=== PATIENT | female | born 2000 | race Caucasian/White ===

== ENCOUNTER 2022-03-29 16:03 | Emergency (ER) | payer OTHER, SELFPAY ==
--- NOTE | ~2022-03-29 | US_ITS ---
EXAMINATION: US renal BI DATE: 03/29/2022 17:43 INDICATION: Bilateral flank pain. Dysuria. TECHNIQUE: Multiple ultrasound grayscale images of the kidneys were obtained. COMPARISON: None. FINDINGS: The right kidney measures 9.0 x 5.8 x 4.1 cm. The left kidney measures 10.6 x 4.2 x 5.7 cm. The kidne ys demonstrate normal parenchymal echogenicity. There is no hydronephrosis. The bladder is not well d istended. IMPRESSION: 1. Normal kidneys. No hydronephrosis. Reviewed, dictated and finalized at location A. 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
[2022-03-29 16:17] VITALS: BP 117/68; PULSE 84; RESP 18; TEMP 36.9; O2SAT 100
[2022-03-29 16:29] LABS: Add Urine Microscopic? YES; Appearance Urine Slightly Cloudy (Clear); Bilirubin Urine Negative (Negative); Blood Urine Negative (Negative); Color Urine Yellow (Yellow); Glucose Urine UA Negative (Negative); Ketones Urine Negative (Negative); Leukocyte Esterase Ur Negative LEU/UL (Negative); Nitrate Urine Negative (Negative); Protein Urine Trace mg/dL (Negative); Urobilinogen Urine 0.2 mg/dL (<2.0)
[2022-03-29 16:43] LABS: Bacteria Urine Trace /hpf; Mucus Urine Heavy /lpf; Squamous Epithelial Cell Urine Few /hpf (Few)
--- NOTE | 2022-03-29 17:23 | ED.ABDPAIN ---
HPI - Abdominal Pain General Chief Complaint: Abdominal Pain Stated Complaint: bilateral flank pain- 18 weeks Time Seen by Provider: 03/29/22 17:05 History of Present Illness HPI narrative: 21-year-old female who is currently 18 weeks here for evaluation of back pain. Patient states the pain began last evening in her right lumbar paraspinal region, she took a Tylenol with improvement of her symptoms but states that she woke up today and her left lumbar paraspinal region was sore. She is concerned because she had an episode of dysuria 3 days ago; since resolved. Denies fevers, chills, nausea, vomiting, diarrhea, constipation, trauma tach, incontinence or retention of bowel or bladder, saddle anesthesia. She denies abdominal pain, decreased movements. No vaginal bleeding. She is a patient of Dr. Odonnell. Related Data Allergies Allergy/AdvReac Type Severity Reaction Status Date / Time latex Allergy Blister Verified 03/29/22 18:16 propranolol Allergy Unknown Verified 03/29/22 18:16 tramadol Allergy Seizure Verified 03/29/22 18:16 cephalexin [From Keflex] AdvReac Vomiting Verified 03/29/22 18:16 morphine AdvReac Vomiting Verified 03/29/22 18:16 Review of Systems Review of Systems: Gen: Denies fevers or chills Eyes: Denies eye pain or visual change ENT: Denies congestion Respiratory: Denies shortness of breath or cough CV: Denies chest pain or palpitations GI: Denies abdominal pain nausea, emesis or diarrhea denies burning, urgency, frequency or hematuria Musculoskeletal: Reports bilateral low back pain. Neuro: Denies numbness, tingling, weakness or focal weakness Skin: Denies rash Except as documented, all other systems reviewed and negative Exam Narrative: APPEARANCE: No acute distress, nontoxic, resting in bed EYES: EOMI HEENT: Normocephalic, atraumatic, OMM RESPIRATORY: No respiratory distress Clear to auscultation bilaterally with no rhonchi wheezing or rales. CARDIOVASCULAR: Regular rate and rhythm without murmurs rubs or gallops. ABDOMINAL: Gravid uterus. Soft, nontender, nondistended, no rebound or guarding MUSCULOSKELETAL: No CVA tenderness. No tenderness along the midline. Moves all extremities. No clubbing, cyanosis or edema. NEURO: Awake and alert. Following commands, speech normal, no focal deficits SKIN: Warm, dry. No rashes lesions or abrasions PSYCHIATRIC: Normal affect/mood Course Vital Signs Vital signs: Vital Signs Temperature 98.5 F 03/29/22 16:17 Pulse Rate 84 03/29/22 16:17 Respiratory Rate 18 03/29/22 16:17 Blood Pressure 117/68 03/29/22 16:17 Pulse Oximetry 100 03/29/22 16:17 Temperature 98.5 F 03/29/22 16:17 Pulse Rate 84 03/29/22 16:17 Respiratory Rate 18 03/29/22 16:17 Blood Pressure 117/68 03/29/22 16:17 Pulse Oximetry 100 03/29/22 16:17 MDM - Abdominal Pain MDM Narrative Medical decision making narrative: 21-year-old female here for evaluation of bilateral low back pain over the past several days, preceded by 1 day of dysuria that has resolved. She is nontoxic-appearing and has normal vital signs, no CVA tenderness. UA is without evidence of infection; evidence of mucus, only 4-6 WBC. Declines testing for STIs or STDs today. Renal ultrasound without hydronephrosis. no decreased motions, vaginal bleeding, abdominal pain or contractions. Lab Data 03/29/22 18:17 03/29/22 18:17 Labs: Lab Results 03/29/22 03/29/22 03/29/22 Range/Units 16:20 18:17 18:17 WBC 8.3 (4.5-10.0) K/mm3 RBC 4.58 (4.2-5.4) M/mm3 Hgb 12.9 (12.0-15.0) g/dL Hct 39.1 (37.0-47.0) % MCV 85.4 (80-100) fl MCH 28.2 (26-34) pg MCHC 33.0 (32-36) g/dl RDW 13.7 (11.5-14.5) % Plt Count 242 (150-375) k/mm3 MPV 10.5 H (7.4-10.4) fl Immature Gran % (Auto) 0.6 H (0-0.5) % Neut % (Auto) 72.3 (45.5-73.1) % Lymph % (Auto) 19.4 (18.3-44.2) % [place] % (Aut
[2022-03-29] MEDS: ACETAMINOPHEN 325 MG TABLET 650 MG PO (18:22)
[2022-03-29 18:26] LABS: Basophils Percent Auto 0.1 % (0.2-1.2); Eosinophils Percent Auto 0.4 % (0-4.4); Hematocrit 39.1 % (37.0-47.0); Hemoglobin 12.9 g/dL (12.0-15.0); Immature Granulocyte Absolute 0.05 K/mm3 (0.00-0.031); Immature Granulocyte Percent A 0.6 % (0-0.5); Lymphocytes Absolute Auto 1.61 K/mm3 (0.9-3.2); Lymphocytes Percent Auto 19.4 % (18.3-44.2); Mean Corpuscular Hemoglobin 28.2 pg (26-34); Mean Corpuscular Volume 85.4 fl (80-100); Mean Platelet Volume 10.5 fl (7.4-10.4); Monocytes Absolute Auto 0.6 K/mm3 (0.1-0.6); Monocytes Percent Auto 7.2 % (2.6-8.5); Neutrophils Percent Auto 72.3 % (45.5-73.1); Platelet Count Result 242 k/mm3 (150-375); Red Blood Count 4.58 M/mm3 (4.2-5.4); Red Cell Distribution Width 13.7 % (11.5-14.5); White Blood Count 8.3 K/mm3 (4.5-10.0)
[2022-03-29 18:36] LABS: Alanine Aminotransferase 33 U/L (6-35); Albumin Level 3.9 g/dL (3.5-5.1); Alkaline Phosphatase 106 U/L (38-126); Anion Gap 6 mmol/L (8-16); Aspartate Amino Transferase 25 U/L (14-36); Bilirubin,Total 0.6 mg/dL (0.2-1.3); Blood Urea Nitrogen 4 mg/dL (7-17); Calcium 8.7 mg/dL (8.4-10.2); Carbon Dioxide 23 mmol/L (22-30); Chloride 102 mmol/L (98-107); Estimated CRCL calculation 177 ml/min; Estimated Glomerular Filt Rate > 60; Glucose 81 mg/dL (65-110); Potassium 3.7 mmol/L (3.4-5.0); Sodium 131 mmol/L (137-145)
[2022-03-29 19:02] VITALS: BP 99/52; PULSE 88; RESP 16; O2SAT 99
== END 2022-03-29 19:04 | disposition home or self-care (01) ==
PROVIDERS: Emergency Medicine; Emergency Provider Physician Assistant; PCP Obstetrics & Gynecology
DX: O9A.212 Injury, poisoning and certain other consequences of external causes complicating pregnancy, second trimester (principal); S33.5XXA Sprain of ligaments of lumbar spine, initial encounter; X58.XXXA Exposure to other specified factors, initial encounter; Z3A.18 18 weeks gestation of pregnancy
CPT/HCPCS: 36415; 76775; 80053; 81001; 85025; 99284; A9270

== ENCOUNTER 2022-07-10 17:05 | Observation (INO) | payer BC, OTHER, SELFPAY ==
[2022-07-10] VITALS (19 sets, daily range): BP systolic 111–118; BP diastolic 62–69; PULSE 72–99; RESP 18; TEMP 36; O2SAT 97–100; BMI 37.6
[2022-07-10 18:26] LABS: Appearance Urine Turbid (Clear); Bacteria Urine 1+ /hpf; Bilirubin Urine Negative (Negative); Blood Urine Negative (Negative); Color Urine Yellow (Yellow); Glucose Urine UA Negative (Negative); Ketones Urine Negative (Negative); Leukocyte Esterase Ur Trace LEU/UL (Negative); Nitrate Urine Negative (Negative); Non Pathogenic Casts 0-2; Protein Urine Negative (Negative); RBC Urine 0-2 /hpf (0-2); Specific Grav Ur 1.018 (1.001-1.035); Squamous Epithelial Cell Urine Occasional /hpf (Few); Urobilinogen Urine 0.2 mg/dL (<2.0); WBC Urine 0-5 /hpf
[2022-07-10 18:35] LABS: Add Urine Microscopic? YES
--- NOTE | 2022-07-12 09:17 | P.PNOB_ITS ---
OB - Triage/Final Diagnosis Visit Information Reason for evaluation: threatened labor Comments/Additional reasons for admission: I have assessed the risk for this patient, Kylie Lino, and determined that she would benefit from observation care. Evaluation Laboratory results: Laboratory Tests 07/10/22 18:14 Urine Color Yellow Urine Appearance Turbid H Urine pH 7.0 Ur Specific [place] 1.018 Urine Protein Negative Urine Glucose (UA) Negative Urine Ketones Negative Ur Blood (Man) Negative Urine Nitrate Negative Urine Bilirubin Negative Urine Urobilinogen 0.2 Leukocyte Esterase Rfl Trace H Urine RBC 0-2 Urine WBC 0-5 Ur Squamous Epith Cells Occasional Urine Bacteria 1+ H Urine Casts 0-2
== END 2022-07-10 18:35 | disposition other institution (70) ==
PROVIDERS: Admitting Provider Obstetrics & Gynecology; Visit Provider Obstetrics & Gynecology
DX: O47.03 False labor before 37 completed weeks of gestation, third trimester (principal); Z3A.33 33 weeks gestation of pregnancy
CPT/HCPCS: 81001; G0378; G0379

== ENCOUNTER 2022-08-12 14:58 | Observation (INO) | payer BC, OTHER, SELFPAY ==
--- NOTE | 2022-08-12 15:50 | PC.NURSE ---
This patient, Kylie Lino, admitted to the OB room Labor/Delivery/Recovery 108 for observation. Patient/family oriented to hospital policies and general routines including ID bracelet, bed and alarms, visiting hours, pain management, procedures, bathroom and other care routines, personal items, smoking policy, room service/diet, and visiting hours. Patient/Family are encouraged to report perceived risks to care and to ask questions if they do not understand what they are told or what they should do.
--- NOTE | 2022-08-12 17:07 | PC.NURSE ---
Orders on this pt placed per Alessandro Reese RN.
--- NOTE | 2022-08-17 08:59 | PM.OBTRLD ---
OB - Triage/Final Diagnosis Visit Information Comments/Additional reasons for admission: I have assessed the risk for this patient, Kylie Lino, and determined that she would benefit from observation care. Final Diagnosis (1) False labor: Code(s): O47.9 - False labor, unspecified Status: Acute
== END 2022-08-12 17:25 | disposition home or self-care (01) ==
PROVIDERS: Admitting Provider Obstetrics & Gynecology; Visit Provider Obstetrics & Gynecology
DX: O47.1 False labor at or after 37 completed weeks of gestation (principal); Z3A.37 37 weeks gestation of pregnancy
CPT/HCPCS: G0378; G0379

== ENCOUNTER 2022-08-21 16:47 | Inpatient (IN) | payer OTHER, SELFPAY ==
[2022-08-21] VITALS (11 sets, daily range): BP systolic 96–125; BP diastolic 57–72; PULSE 81–95; TEMP 36.6–36.8; O2SAT 97–100; BMI 37.6
--- NOTE | 2022-08-21 17:46 | P.PNAN_ITS ---
Anes - Initial Pre Proc Eval Procedure: Labor epidural Date/Time: 08/21/22 17:46 Surgeon: Tom Odonnell MD Pre Op Diagnosis: Abdominal pain with contractions Pre Op Diagnosis: IOL Patient Data Age: 21 Gender: F Height: Weight: Allergies Allergy/AdvReac Type Severity Reaction Status Date / Time latex Allergy Blister Verified 03/29/22 18:16 propranolol Allergy Unknown Verified 07/10/22 18:04 tramadol Allergy Seizure Verified 03/29/22 18:16 cephalexin [From Keflex] AdvReac Vomiting Verified 03/29/22 18:16 morphine AdvReac Vomiting Verified 03/29/22 18:16 Home Medications Medication Instructions Recorded Confirmed Type albuterol sulfate 90 mcg/actuation 2 puff inhalation Q4H PRN 07/10/22 08/21/22 History aerosol inhaler Shortness Of Breath fluoxetine 10 mg capsule 10 mg PO HS 07/10/22 08/21/22 History metoprolol succinate 50 mg 50 mg PO DAILY 07/10/22 08/21/22 History tablet,extended release 24 hr vit no.95-ferrous 1 tablet PO HS 07/10/22 08/21/22 History fumarate 28 mg-folic acid 800 mcg tablet () : gestational age HCG: positive Patient hx anesthesia problems: none Family hx anesthesia problems: none Results Review: All pre-operative results and documents have been reviewed as part of the pre- operative evaluation. PMFSH Past Medical History Medical History Anemia Anxiety and depression H/O supraventricular tachycardia Migraines and not yet delivered PTSD (post-traumatic stress disorder) Scoliosis Family History Family History Grandparent Diabetes mellitus Cancer A-fib Mother High cholesterol Social History Social History Substance use: never Spiritual care concerns: No Anes - Eval Final PreProcedure Day of Procedure 08/21/22 17:46 Patient weight: overweight Airway: Mallampati scale class II ASA classification: III Anesthetic plan: proceed Anesthesia type and monitoring: standard monitoring Results Review: All pre-operative results and documents have been reviewed as part of the pre- operative evaluation. Informed Consent: The patient's anesthetic plan and its attendant risks and benefits were discussed with the patient/family/POA. Questions were solicited and answers provided to the satisfaction of the patient/family/POA.
--- NOTE | 2022-08-21 17:48 | LDADM ---
This patient, Kylie Lino, was admitted to Labor/Delivery/Recovery 107 on 08/21/22 at 16:47. Plans for labor, pain management and were discussed with patient. Patient/family oriented to hospital policies and general routines including ID bracelet, bed and alarms, visiting hours, pain management, procedures, bathroom and other care routines, personal items, smoking policy, room service/diet and guest tray routines, infant security routines, and visiting hours. Patient/Family are encouraged to report perceived risks to care and to ask questions if they do not understand what they are told or what they should do. See OBIX for further documentation.
[2022-08-21] MEDS: DINOPROSTONE 10 MG VAG INSERT VAGINAL (18:17)
[2022-08-21 18:19] LABS: Basophils Percent Auto 0.1 % (0.2-1.2); Eosinophils Percent Auto 0.4 % (0-4.4); Hematocrit 36.1 % (37.0-47.0); Hemoglobin 11.8 g/dL (12.0-15.0); Immature Granulocyte Absolute 0.08 K/mm3 (0.00-0.031); Immature Granulocyte Percent A 0.8 % (0-0.5); Lymphocytes Absolute Auto 1.59 K/mm3 (0.9-3.2); Lymphocytes Percent Auto 16.5 % (18.3-44.2); Mean Corpuscular HGB Conc 32.7 g/dl (32-36); Mean Corpuscular Hemoglobin 27.6 pg (26-34); Mean Corpuscular Volume 84.5 fl (80-100); Mean Platelet Volume 10.5 fl (7.4-10.4); Monocytes Absolute Auto 0.9 K/mm3 (0.1-0.6); Monocytes Percent Auto 9.4 % (2.6-8.5); Neutrophils Percent Auto 72.8 % (45.5-73.1); Platelet Count Result 241 k/mm3 (150-375); Red Blood Count 4.27 M/mm3 (4.2-5.4); Red Cell Distribution Width 14.6 % (11.5-14.5); White Blood Count 9.6 K/mm3 (4.5-10.0)
[2022-08-21 19:08] LABS: HIV 1/2 Ab P24 Ag Result Negative (Negative)
[2022-08-21] MEDS: fentaNYL CITRATE INJ (*CRX) 100 MCG/2 ML VIAL 50 MCG IV PUSH (22:02)
[2022-08-21] MEDS: LACTATED RINGERS 1,000 ML 125 ML IV CONT (22:25)
[2022-08-21] MEDS: fentaNYL CITRATE INJ (*CRX) 100 MCG/2 ML VIAL IV PUSH (23:27)
[2022-08-22] VITALS (151 sets, daily range): BP systolic 64–150; BP diastolic 29–121; PULSE 47–271; RESP 14–16; TEMP 36.7–37.1; O2SAT 82–100
[2022-08-22] MEDS: LACTATED RINGERS 1,000 ML 125 ML IV CONT ×2 (01:26→07:07)
[2022-08-22] MEDS: FLUoxetine HCL 10 MG CAPSULE PO ×2 (01:28→23:39)
[2022-08-22] MEDS: ONDANSETRON INJ 4 MG/2 ML VIAL IV PUSH (06:11)
--- NOTE | 2022-08-22 06:36 | PM.OBPNLAB ---
Pain Control Date/time seen: 08/22/22 06:36 Pain control: tolerating well and epidural Pelvic Exam Dilation (cm): 8 Effacement (%): 100 station: -1 Amniotic membrane status: Leaking Comments: iupc placed. amnioinfusion
[2022-08-22] MEDS: CALCIUM CARBONATE (TUMS) 500 MG (200 MG ELEMENTAL) PO (06:42)
[2022-08-22] MEDS: SODIUM CHLORIDE 0.9% IV 300 ML 600 ML I-UTERINE (06:42)
--- NOTE | 2022-08-22 07:17 | PC.NURSE ---
Third bag of LR started at 0400
[2022-08-22] MEDS: OXYTOCIN 30 UNITS/NS 500 ML 30 UNITS/500 ML BAG 999 UNITS IV CONT (07:54)
--- NOTE | 2022-08-22 08:20 | WPDOBADMIT ---
Obstetrics - Admit Note Admission Note: record reviewed. Additions to the history and/or subsequent changes in the physical findings follow. 21 y/o G1 at 39 1/7 weeks here for induction of labor. Cervidil overnight, has been withdrawn. Comfortable with epidural. GBS neg. AVSS NST reactive; now with variable decelerations. TOCO: contractions every 2-3 min ABD soft, nontender, gravid, vertex EXT nontender Cervix C/+2 at time of my arrival. A; IUP at term, desiring induction of labor. P: Pushing. Anticipate .
--- NOTE | 2022-08-22 08:22 | PM.OBPRVD ---
OB - Delivery Note Procedure Delivery date: 08/22/22 Procedure: Induction of labor with Induction method: Per Cervidil Protocol Delivery augmentation: Rupture of Membranes Delivery monitor: External FHT, External Uterine and Internal Uterine Route of delivery: Laceration Description: Perineal - 2nd Degree Delivery repair: vicryl (3-0) Specimen: Yes (Cord blood) Quantitative Blood Loss (ml): 160 Anesthesia type: Epidural Disposition: PACU Complications: None Narrative: 21 y/o G1 at 39 1/7 weeks gestation who presented to the hospital for induction of labor. Cervidil placed. She developed contractions and received an epidural. Cervidil withdrawn and cervix was found to be 8 cm dilated. AROM with clear fluid. IUPC placed and an amnioinfusion begun for variable FHR decelerations. Labor progressed rapidly without further stimulation, and her cervix dilated completely. She pushed with good effort and delivered the infant's head to the perineum, followed by the body. The nose and mouth were bulb suctioned. After a delay, the cord was clamped and cut. The was handed off the field. Cord blood was collected. The placenta delivered spontaneously and was grossly normal in appearance. The usual 3 vessel cord was noted. A second degree midline perineal laceration was sustained. This was reapproximated using 3 0 Vicryl in the usual layered fashion. Excellent hemostasis resulted as did excellent reapproximation of the normal anatomy. Needle and instrument counts were correct. The patient was taken to recovery room in stable condition. The infant went to the nursery in stable condition. I was present and scrubbed for the entire delivery. Baby Date of : 08/22/22 Time of : 07:50 Weeks of gestation at delivery: 39 Infant gender: Male Weight (pounds): 7 Weight (ounces): 10 presentation: vertex position: Right Occiput Anterior Placenta delivery description: Spontaneous and Normal Configuration Cord Vessel Description: 3 Vessels and Delayed Cord Clamping score one minute: 9 score five minutes: 9
[2022-08-22] MEDS: OXYTOCIN 30 UNITS/NS 500 ML 30 UNITS/500 ML BAG 125 UNITS IV CONT (08:26)
--- NOTE | 2022-08-22 08:26 | PM.OBDSVD ---
DS: Admitting Diagnosis Discharge Date 08/23/22 Admitting Diagnosis IUP at 39 1/7 weeks DS: Discharge Diagnosis Discharge Diagnosis (1) (normal spontaneous vaginal delivery): Code(s): O80 - Encounter for full-term uncomplicated delivery Status: Acute OB - DS: Summary OB Procedures : None OB Procedures Intrapartum: Spontaneous Vag Delivery OB Procedures: : None Time Spent with Patient Time attestation: Total time spent providing and/or coordinating discharge services: DS: Data Data Completed and Pending Labs on day of discharge: Labs from last 24 hours 08/21/22 18:10 WBC 9.6 RBC 4.27 Hgb 11.8 L Hct 36.1 L MCV 84.5 MCH 27.6 MCHC 32.7 RDW 14.6 H Plt Count 241 MPV 10.5 H Immature Gran % (Auto) 0.8 H Neut % (Auto) 72.8 Lymph % (Auto) 16.5 L [place] % (Auto) 9.4 H Eos % (Auto) 0.4 Baso % (Auto) 0.1 L Lymph # (Auto) 1.59 [place] # (Auto) 0.9 H Eos # (Auto) 0.0 Baso # (Auto) 0.0 Abs Immat Gran (auto) 0.08 H Absolute Neuts (auto) 7.0 H Absolute Nucleated RBC 0.0 Nucleated RBC % 0.0 RPR Pending HIV 1&2 Ab/P24 Ag 4thGn Negative Blood Type O Positive Antibody Screen Negative Discharge Plan Discharge Attending physician on discharge: Tom Odonnell Discharging Clinician: Tom Odonnell Patient Disposition: Home, Self-Care Activity: pelvic rest Diet: regular Discharge Instructions: Call or return if temperature above 100.4? F, increased abdominal pain, increased vaginal bleeding or any new problems. Education: Mom and Baby Guide Given to: Mother Follow-Up: Call your delivering provider's office for an appointment to be seen in: 6 Weeks Mom and baby should come to the [facility] for the follow-up appointment. Appointment Date/Time: August 26, 2022 at 11:00 am What to expect at your follow-up visit: Physical Assessment Call [phone] if you are unable to keep your appointment time. BREAST CARE: * Wear a snug supportive bra. * For engorgement discomfort: Breast Feeding: * Apply warm moist washcloths * Express milk as needed to relieve engorgement * Wear loose clothing * For sore nipples: * Identify correct latch-on * Apply warm moist washcloths before and after nursing * Air dry nipples after nursing * May apply Lansinoh cream to nipples EPISIOTOMY/PERINEAL CARE: * Until bleeding stops, use your daniele bottle after urinating * Change your pad frequently throughout the day * You may take sitz baths several times a day (fill your bathtub with warm water and soak for 20 minutes.) Do NOT bathe in the water * No tub baths until seen by your physician - You may shower ACTIVITY: * Rest as much as possible. * Do not exercise or lift anything heavier than your baby (such as laundry or other children.) * Avoid stairs or driving as much as possible. * Do not put anything into the vagina. No douching, tampons, or sexual activity until seen by physician. NOTIFY PHYSICIAN IF YOU HAVE ANY QUESTIONS OR IF ANY OF THE FOLLOWING SYMPTOMS OCCUR: * If your episiotomy or incision becomes red, swollen, or more painful than what you have experienced in the hospital. * If your vaginal bleeding becomes foul smelling. * If your vaginal bleeding becomes more heavy than a period or if your bleeding changes from pink to bright red. However, you may pass an occasional walnut-sized clot once or twice for the first week . * If you experience a sharp, shooting pain in you calves. * If you discover a hard, reddened area on your breast or if you experience flu-like symptoms. DIET: * Eat regular, well-balanced meals. * Drink plenty of fluids daily. If , drink to thirst. Stand Alone Forms: General Discharge Information Follow-up/Referrals: Tom Odonnell MD [Physician] - 6 Weeks Discharge Medications: New i
[2022-08-22 08:52] LABS: Rapid Plasma Reagin Non-Reactive (NonReactive)
[2022-08-22] MEDS: METOPROLOL SUCCINATE EXT REL 50 MG TABCR PO (10:40)
--- NOTE | 2022-08-22 11:13 | PC.NURSE ---
Patient transferred to post room #282 via wheelchair. Support person present. Oriented to unit, room, information board, rooming in, admission packet and security measures. Patient verbalizes understanding.
[2022-08-22] MEDS: IBUPROFEN 600 MG TABLET PO ×3 (11:55→23:39)
[2022-08-22] MEDS: MULTIVIT/MIN/PREN/FOL AC/IRON TABLET 1 TAB PO (11:55)
[2022-08-23 05:31] LABS: Hematocrit 33.4 % (37.0-47.0); Hemoglobin 10.6 g/dL (12.0-15.0)
[2022-08-23] MEDS: MULTIVIT/MIN/PREN/FOL AC/IRON TABLET 1 TAB PO (06:47)
[2022-08-23] MEDS: IBUPROFEN 600 MG TABLET PO ×2 (06:47→13:47)
[2022-08-23] MEDS: LANOLIN (LANSINOH) 7.5 GM CREAM 1 APPLIC TOPICAL (06:48)
[2022-08-23] MEDS: ACETAMINOPHEN 325 MG TABLET 650 MG PO (08:03)
[2022-08-23 08:04] VITALS: PULSE 72
[2022-08-23] MEDS: METOPROLOL SUCCINATE EXT REL 50 MG TABCR PO (08:04)
[2022-08-23 08:30] VITALS: BP 104/61; PULSE 87; RESP 16; TEMP 36.8; O2SAT 100
--- NOTE | 2022-08-23 09:01 | PM.OBPNVD ---
OB - PN: Subj Subjective Date/time seen: 08/23/22 09:01 Patient comments: no complaints and pain well controlled baby status: doing well and nursing well OB - PN: Obj Data Labs 08/23/22 04:41 Labs: Laboratory Results - last 24 hr 08/23/22 04:41 Hgb 10.6 L Hct 33.4 L OB - PN A/P Plan day: 1 Plan: routine care, discharge home and follow up 6 weeks Time Spent With Patient Time: Total time spent is greater than 50% in coordination of care (as documented) at patient's floor/unit and/or counseling patient: Time with patient: less than 15 minutes Exam Const: General: cooperative, healthy appearing and comfortable Nutritional Appearance: average body habitus Orientation/consciousness: oriented to person, oriented to place and oriented to time GI: Inspection: normal to inspection
--- NOTE | 2022-08-23 14:19 | PC.NURSE ---
Patient viewed the discharge video Mother & Baby Care, The First Two Weeks . Patient was given the opportunity and encouraged to ask questions. Patient verbalized understanding of information shared and has been given the mother/baby guide for home reference.
--- NOTE | 2022-08-23 14:56 | WPDANLDPN2 ---
Anes-Prog Note L&D Date/Time: 08/23/22 14:56 Neuro status: Neuro function grossly intact. Vital Signs: Last Vital Signs Temp 36.8 C 08/23/22 08:30 Pulse 87 08/23/22 08:30 Resp 16 08/23/22 08:30 BP 104/61 08/23/22 08:30 Pulse Ox 100 08/23/22 08:30 O2 Del Method Room Air 08/21/22 17:45 Pain score (VAS): 0 I/O: Intake & Output 08/22/22 08/23/22 08/23/22 23:59 07:59 15:59 Intake Total 0 480 Balance 0 480 Patient feedback: Patient satisfied with anesthetic care.
[2022-08-26 11:10] VITALS: BP 119/62; PULSE 88; RESP 18; TEMP 37.3; O2SAT 100
== END 2022-08-23 15:20 | disposition home or self-care (01) | DRG 560 ==
LOC: ANHLDR 08-22 08:35 → ANHOB2 08-22 14:17 → ANHLDR 08-27 09:55 → ANHOB2 08-27 09:55
PROVIDERS: Admitting Provider Obstetrics & Gynecology; Visit Provider Obstetrics & Gynecology
DX: O99.02 Anemia complicating childbirth (principal); D64.9 Anemia, unspecified; Z37.0 Single live birth; Z3A.39 39 weeks gestation of pregnancy; O70.1 Second degree perineal laceration during delivery; O36.8330 Maternal care for abnormalities of the fetal heart rate or rhythm, third trimester, not applicable or unspecified
CPT/HCPCS: 36415; 85014; 85018; 85025; 86592; 86703; 86850; 86900; 86901; A9270; G0432; J2405; J2590; J2795; J3010; J7030; J7120

== ENCOUNTER 2023-06-30 11:14 | Emergency (ER) | payer OTHER, SELFPAY ==
[2023-06-30] VITALS (13 sets, daily range): BP systolic 91–111; BP diastolic 45–82; PULSE 74–146; RESP 15–18; TEMP 36.6; O2SAT 98–100
[2023-06-30 11:50] LABS: Basophils Percent Auto 0.2 % (0.2-1.2); Eosinophils Percent Auto 0.2 % (0-4.4); Hematocrit 40.8 % (37.0-47.0); Hemoglobin 13.3 g/dL (12.0-15.0); Immature Granulocyte Absolute 0.01 K/mm3 (0.00-0.031); Immature Granulocyte Percent A 0.2 % (0-0.5); Lymphocytes Absolute Auto 0.59 K/mm3 (0.9-3.2); Lymphocytes Percent Auto 13.2 % (18.3-44.2); Mean Corpuscular HGB Conc 32.6 g/dl (32-36); Mean Corpuscular Hemoglobin 27.4 pg (26-34); Mean Platelet Volume 10.5 fl (7.4-10.4); Monocytes Absolute Auto 0.4 K/mm3 (0.1-0.6); Monocytes Percent Auto 9.8 % (2.6-8.5); Neutrophils Absolute Auto 3.4 K/mm3 (1.3-6.7); Neutrophils Percent Auto 76.4 % (45.5-73.1); Platelet Count Result 193 k/mm3 (150-375); Red Blood Count 4.86 M/mm3 (4.2-5.4); Red Cell Distribution Width 14.1 % (11.5-14.5); White Blood Count 4.5 K/mm3 (4.5-10.0)
[2023-06-30 12:11] LABS: Appearance Urine Cloudy (Clear); Bacteria Urine 4+ /hpf; Bilirubin Urine Negative (Negative); Blood Urine Negative (Negative); Color Urine Dark Yellow (Yellow); Glucose Urine UA Negative (Negative); Ketones Urine 3+ mg/dL (Negative); Leukocyte Esterase Ur Negative LEU/UL (Negative); Need Manual Microscopic Reviewed; Nitrate Urine Negative (Negative); Protein Urine Trace mg/dL (Negative); Specific Grav Ur 1.024 (1.001-1.035); Squamous Epithelial Cell Urine Few /hpf (Few)
[2023-06-30 12:14] LABS: Add Urine Microscopic? YES
[2023-06-30 13:46] LABS: Alanine Aminotransferase 26 U/L (6-35); Albumin Level 3.5 g/dL (3.5-5.1); Alkaline Phosphatase 110 U/L (38-126); Anion Gap 5 mmol/L (4-12); Aspartate Amino Transferase 33 U/L (14-36); Bilirubin,Total 0.5 mg/dL (0.2-1.3); Blood Urea Nitrogen 5 mg/dL (7-17); Calcium 8.5 mg/dL (8.4-10.2); Carbon Dioxide 22 mmol/L (22-30); Chloride 104 mmol/L (98-107); Estimated CRCL calculation 211 ml/min; Estimated Glomerular Filt Rate > 60; Glucose 81 mg/dL (65-110); Potassium 3.2 mmol/L (3.4-5.0); Sodium 131 mmol/L (137-145)
[2023-06-30] MEDS: ONDANSETRON INJ 4 MG/2 ML VIAL IV PUSH (13:49)
[2023-06-30] MEDS: DEXTROSE 5%/LACTATED RINGERS 1,000 ML 999 ML IV CONT (13:49)
[2023-06-30 14:44] LABS: Lipase 53 U/L (23-300)
[2023-06-30] MEDS: SODIUM CHLORIDE 0.9% IV 1,000 ML 999 ML IV CONT (15:18)
--- NOTE | 2023-06-30 16:24 | ED.GENADULT ---
HPI - General Adult General Chief complaint: Nausea/Vomiting/Diarrhea Stated complaint: dehydration Time Seen by Provider: 06/30/23 13:22 Source: patient Mode of arrival: ambulatory Limitations: no limitations History of Present Illness HPI narrative: 22-year-old 2 para 1 about 15 weeks of gestation here with complaints of nausea, vomiting, lightheadedness for past few days. Patient states that she is unable to keep anything down. Patient was at the primary doctor's office was found to have high heart rate was referred to the ER for workup and hydration. She presently denies having any chest pain or shortness of breath. Complains of occasional abdominal cramping whenever she dry heaves. Had some diarrhea yesterday none today. Denies any vaginal bleeding or discharge. Related Data Home Medications Medication Instructions Recorded Confirmed albuterol sulfate 90 mcg/actuation 2 puff inhalation Q4H PRN 07/10/22 08/21/22 aerosol inhaler Shortness Of Breath fluoxetine 10 mg capsule 10 mg PO HS 07/10/22 08/21/22 metoprolol succinate 50 mg 50 mg PO DAILY 07/10/22 08/21/22 tablet,extended release 24 hr vit no.95-ferrous 1 tablet PO HS 07/10/22 08/21/22 fumarate 28 mg-folic acid 800 mcg tablet () Allergies Allergy/AdvReac Type Severity Reaction Status Date / Time latex Allergy Blister Verified 06/30/23 11:32 propranolol Allergy Unknown Verified 06/30/23 11:32 tramadol Allergy Seizure Verified 06/30/23 11:32 cephalexin [From Keflex] AdvReac Vomiting Verified 06/30/23 11:32 morphine AdvReac Vomiting Verified 06/30/23 11:32 Review of Systems Review of Systems: All systems reviewed & are unremarkable except as noted in HPI and below Constitutional: Constitutional: Reports no additional constitutional complaints Eyes: Eyes: Reports no additional eye complaints ENT: Reports system reviewed and no additional complaints, except as documented Cardiovascular: Cardiovascular: Reports no additional cardiovascular complaints Respiratory: Respiratory: Reports no additional respiratory complaints Gastrointestinal: Gastrointestinal: Reports as per HPI Musculoskeletal: Musculoskeletal: Reports no additional musculoskeletal complaints PMFSH Past Medical History Medical History Anemia Anxiety and depression H/O supraventricular tachycardia Migraines and not yet delivered PTSD (post-traumatic stress disorder) Scoliosis Family History Family History Grandparent Diabetes mellitus Cancer A-fib Mother High cholesterol Social History Social History Smoking status: Never smoker Substance use: never Lack of Transportation: No Lack of Food: Never True Current Housing: I Have Housing Concerned About Future Housing: No Difficulty Paying Gas/Electric Bills: No Difficulty Paying for Meds: No Currently Unemployed: No Education: High School Diploma/GED Difficulty w/ Childcare or Family Care: No Spiritual care concerns: No Exam Narrative: GENERAL: Well-appearing, well-nourished, and in no acute distress. HEAD: Normocephalic, atraumatic. EYES: PERRLA and EOMI. ENT: Nares clear, no rhinorrhea or epistaxis. Mucous membranes moist. NECK: Supple. CHEST: Clear to auscultation. No respiratory distress. HEART: Regular rate and rhythm. No murmur heard. Normal peripheral pulses. ABDOMEN: Soft, nontender, nondistended, normal active bowel sounds. EXTREMITIES: Normal range of motion. No edema. SKIN: Warm, dry, no rash. NEURO: No focal deficits. Alert and oriented x3. PSYCH: Normal mood and affect. Course Course Emergency Course: Patient feeling much better after IV hydration with 2 L crystalloid. Her nausea has not subsided. She is feeling much better was able to tolerate oral fluids. She feel
== END 2023-06-30 16:35 | disposition home or self-care (01) ==
PROVIDERS: Emergency Provider Family Medicine
DX: O21.0 Mild hyperemesis gravidarum (principal); Z3A.15 15 weeks gestation of pregnancy; E86.0 Dehydration
CPT/HCPCS: 36415; 80053; 81001; 83690; 85025; 87086; 87088; 96361; 96374; 99284; J2405; J7030; J7121

== ENCOUNTER 2023-12-15 04:41 | Inpatient (IN) | payer OTHER, SELFPAY ==
[2023-12-15] VITALS (135 sets, daily range): BP systolic 87–185; BP diastolic 43–157; PULSE 62–176; RESP 16–18; TEMP 36.3–37; O2SAT 79–100; BMI 34.5
[2023-12-15 05:14] LABS: Basophils Percent Auto 0.3 % (0.2-1.2); Eosinophils Percent Auto 0.4 % (0-4.4); Hematocrit 35.7 % (37.0-47.0); Hemoglobin 11.3 g/dL (12.0-15.0); Immature Granulocyte Absolute 0.06 K/mm3 (0.00-0.031); Immature Granulocyte Percent A 0.6 % (0-0.5); Lymphocytes Absolute Auto 2.13 K/mm3 (0.9-3.2); Lymphocytes Percent Auto 21.4 % (18.3-44.2); Mean Corpuscular HGB Conc 31.7 g/dl (32-36); Mean Corpuscular Hemoglobin 25.5 pg (26-34); Mean Corpuscular Volume 80.6 fl (80-100); Mean Platelet Volume 11.1 fl (7.4-10.4); Monocytes Percent Auto 9.9 % (2.6-8.5); Neutrophils Absolute Auto 6.7 K/mm3 (1.3-6.7); Neutrophils Percent Auto 67.4 % (45.5-73.1); Platelet Count Result 283 k/mm3 (150-375); Red Blood Count 4.43 M/mm3 (4.2-5.4); Red Cell Distribution Width 13.8 % (11.5-14.5)
--- NOTE | 2023-12-15 05:15 | LDADM ---
This patient, Kylie Lino, was admitted to Labor/Delivery/Recovery 104 on 12/15/23 at 04:41. Plans for labor, pain management and were discussed with patient. Patient/family oriented to hospital policies and general routines including ID bracelet, bed and alarms, visiting hours, pain management, procedures, bathroom and other care routines, personal items, smoking policy, room service/diet and guest tray routines, infant security routines, and visiting hours. Patient/Family are encouraged to report perceived risks to care and to ask questions if they do not understand what they are told or what they should do. See OBIX for further documentation.
[2023-12-15 05:51] LABS: Rapid Plasma Reagin Non-Reactive (NonReactive)
[2023-12-15] MEDS: LACTATED RINGERS 1,000 ML 125 ML IV CONT (05:59)
[2023-12-15] MEDS: OXYTOCIN 30 UNITS/NS 500 ML 30 UNITS/500 ML BAG IV CONT (05:59)
[2023-12-15 06:08] LABS: HIV 1/2 Ab P24 Ag Result Negative (Negative)
--- NOTE | 2023-12-15 06:08 | WPDANESEPP ---
Anes - Eval Pre Procedure Procedure: Labor Epidural Date/Time: 12/15/23 06:08 Surgeon: Blas Preop Diagnosis: Labor Pain Pre Op Diagnosis: IOL Patient Data Age: 23 Gender: F Height: 1.7 m Weight: 100 kg Last Vital Signs Pulse 99 12/15/23 06:00 BP 121/80 12/15/23 06:00 O2 Del Method Room Air 12/15/23 05:15 Allergies Allergy/AdvReac Type Severity Reaction Status Date / Time latex Allergy Blister Verified 12/15/23 05:31 propranolol Allergy Unknown Verified 12/15/23 05:31 tramadol Allergy Seizure Verified 12/15/23 05:31 cephalexin [From Keflex] AdvReac Vomiting Verified 12/15/23 05:31 morphine AdvReac Vomiting Verified 12/15/23 05:31 Home Medications Medication Instructions Recorded Confirmed Type albuterol sulfate 90 mcg/actuation 2 puff inhalation Q4H PRN 07/10/22 12/15/23 History aerosol inhaler Shortness Of Breath fluoxetine 10 mg capsule 20 mg PO HS 07/10/22 12/15/23 History metoprolol succinate 50 mg 50 mg PO DAILY 07/10/22 12/15/23 History tablet,extended release 24 hr vit no.95-ferrous 1 tablet PO HS 07/10/22 12/15/23 History fumarate 28 mg-folic acid 800 mcg tablet () Laboratory Tests 12/15/23 05:10 WBC 10.0 K/mm3 (4.5-10.0) RBC 4.43 M/mm3 (4.2-5.4) Hgb 11.3 L g/dL (12.0-15.0) Hct 35.7 L % (37.0-47.0) MCV 80.6 fl (80-100) MCH 25.5 L pg (26-34) MCHC 31.7 L g/dl (32-36) RDW 13.8 % (11.5-14.5) Plt Count 283 k/mm3 (150-375) MPV 11.1 H fl (7.4-10.4) Immature Gran % (Auto) 0.6 H % (0-0.5) Neut % (Auto) 67.4 % (45.5-73.1) Lymph % (Auto) 21.4 % (18.3-44.2) [place] % (Auto) 9.9 H % (2.6-8.5) Eos % (Auto) 0.4 % (0-4.4) Baso % (Auto) 0.3 % (0.2-1.2) Lymph # (Auto) 2.13 K/mm3 (0.9-3.2) [place] # (Auto) 1.0 H K/mm3 (0.1-0.6) Eos # (Auto) 0.0 K/mm3 (0-0.3) Baso # (Auto) 0.0 K/mm3 (0.0-0.1) Abs Immat Gran (auto) 0.06 H K/mm3 (0.00-0.031) Absolute Neuts (auto) 6.7 K/mm3 (1.3-6.7) Absolute Nucleated RBC 0.000 K/mm3 (0.0-0.012) Nucleated RBC % 0.0 % (0.0-0.2) RPR Non-reactive (NonReactive) HIV 1&2 Ab/P24 Ag 4thGn Negative (Negative) Blood Type O Positive Antibody Screen Pending : gestational age (SHIMA 12/20/23, ) Patient hx anesthesia problems: none Family hx anesthesia problems: none Results Review: All pre-operative results and documents have been reviewed as part of the pre-operative evaluation. [facility] Past Medical History Medical History Anemia Anxiety and depression H/O supraventricular tachycardia Migraines and not yet delivered PTSD (post-traumatic stress disorder) Scoliosis Family History Family History Grandparent Diabetes mellitus Cancer A-fib Mother High cholesterol Social History Social History Smoking status: Never smoker Substance use: never Do You Feel Safe in your Home?: Yes Lack of Transportation: No Lack of Food: Never True Current Housing: I Have Housing Concerned About Future Housing: No Difficulty Paying Gas/Electric Bills: No Difficulty Paying for Meds: No Currently Unemployed: No Education: High School Diploma/GED Difficulty w/ Childcare or Family Care: No Spiritual care concerns: No Exam Day of Procedure 12/15/23 06:08 Patient weight: normal Heart: regular rate and rhythm Lungs: normal air movement Airway: Mallampati scale class II Neurological: alert and oriented
[2023-12-15] MEDS: ONDANSETRON INJ 4 MG/2 ML VIAL IV PUSH (06:12)
[2023-12-15] MEDS: FAMOTIDINE 20 MG/2 ML VIAL IV PUSH (06:36)
[2023-12-15] MEDS: LACTATED RINGERS 1,000 ML 999 ML IV CONT (07:51)
--- NOTE | 2023-12-15 08:53 | WPDOBADMIT ---
Obstetrics - Admit Note Admission Note: record reviewed. Additions to the history and/or subsequent changes in the physical findings follow. 23 y/o at 39 2/7 weeks here for induction of labor. GBS neg. AVSS NST reactive TOCO: contractions every 2-3 min ABD soft, nontender, gravid, vertex EXT nontender Cervix 4-5/80/-2. AROM with clear fluid. Vertex. IUPC placed. A: IUP at term with favorable cervix, desiring induction of labor. P: Oxytocin. Anticipate .
--- NOTE | 2023-12-15 10:53 | PM.OBPRVD ---
OB - Vaginal Delivery Note Procedure Delivery date: 12/15/23 Events: Elective Induction of Labor Induction method: Per Pitocin Protocol Delivery augmentation: Rupture of Membranes Delivery monitor: External FHT, External Uterine and Internal Uterine Route of delivery: Episiotomy description: None Laceration Description: Periurethral and Perineal - 2nd Degree Delivery repair: vicryl (3-0) Specimen: Yes (cord blood) Quantitative Blood Loss (ml): 80 Anesthesia type: Epidural Disposition: PACU Complications: None Narrative: 23 y/o at 39 2/7 weeks gestation who presented to the hospital for induction of labor. Oxytocin was administered intravenously. Amniotomy was performed with return of clear fluid. She received an epidural for pain control. Her labor progressed and her cervix dilated completely. She pushed with good effort and delivered the infant's head to the perineum, followed by the body. The nose and mouth were bulb suctioned. After a delay, the cord was clamped and cut. The infant was handed off the field. Cord blood was collected. The placenta delivered spontaneously and was grossly normal in appearance. The usual 3 vessel cord was noted. A second degree midline perineal laceration was sustained. This was reapproximated using 3 0 Vicryl in the usual layered fashion. A left sided periurethral laceration was reapproximated with an additional figure of eight suture of the same material. Excellent hemostasis resulted as did excellent reapproximation of the normal anatomy. Needle and instrument counts were correct. The patient was taken to recovery room in stable condition. The infant went to the nursery in stable condition. I was present and scrubbed for the entire delivery. [place] Baby Date of : 12/15/23 Time of : 10:35 gender: Male presentation: vertex position: Left Occiput Anterior Placenta delivery description: Spontaneous Cord Vessel Description: 3 Vessels and Delayed Cord Clamping score one minute: 9 score five minutes: 9
[2023-12-15] MEDS: METOPROLOL SUCCINATE EXT REL 50 MG TABCR PO (10:56)
[2023-12-15] MEDS: OXYTOCIN 30 UNITS/NS 500 ML 30 UNITS/500 ML BAG 125 UNITS IV CONT (11:08)
[2023-12-15] MEDS: ACETAMINOPHEN 325 MG TABLET 650 MG PO ×2 (13:12→18:59)
[2023-12-15] MEDS: BENZOCAINE 20% AER SPR (*SP) 56 GM CAN 1 SPRAY TOPICAL (13:12)
[2023-12-15] MEDS: IBUPROFEN 600 MG TABLET PO ×2 (13:12→18:57)
[2023-12-15] MEDS: WITCH HAZEL 40 PADS 1 PAD TOPICAL (13:13)
[2023-12-15] MEDS: FLUoxetine HCL 10 MG CAPSULE 20 MG PO (21:14)
[2023-12-16] MEDS: ACETAMINOPHEN 325 MG TABLET 650 MG PO ×3 (00:39→15:32)
[2023-12-16] MEDS: IBUPROFEN 600 MG TABLET PO ×3 (00:39→15:31)
[2023-12-16 05:05] LABS: Hematocrit 34.9 % (37.0-47.0); Hemoglobin 10.5 g/dL (12.0-15.0)
[2023-12-16 05:09] VITALS: BP 109/61; PULSE 58; RESP 18; TEMP 36.7; O2SAT 100
[2023-12-16 07:30] VITALS: BP 109/56; PULSE 65; RESP 18; TEMP 36.6; O2SAT 100
[2023-12-16 09:29] VITALS: PULSE 60
[2023-12-16] MEDS: METOPROLOL SUCCINATE EXT REL 50 MG TABCR PO (09:29)
[2023-12-16] MEDS: MULTIVIT/MIN/PREN/FOL AC/IRON TABLET 1 TAB PO (09:29)
[2023-12-16] MEDS: DOCUSATE SODIUM 100 MG CAPSULE PO ×2 (09:30→18:34)
[2023-12-16] MEDS: SIMETHICONE 80 MG TAB.CHEW PO ×2 (09:37→15:33)
--- NOTE | 2023-12-16 12:45 | PC.NURSE ---
Mother verbalizes she is able to independently latch with appropriate positioning and alignment. She denies any nipple discomfort and is responsively . Infant is currently meeting outcomes for weight, output, jaundice, blood sugar and feeding frequencies of 8-12 times in 24 hours. Baby has been sleepy and just turned 24 hours old. He was circumcised today too. Mother declines any additional assistance or education at this time. Mother is encouraged to call for assistance if her infant doesn?t latch, pain with latching, questions or concerns. Mother voiced understanding of information shared along with the mom/baby guide for an additional resource. Reported to the Primary RN.
--- NOTE | 2023-12-16 12:46 | PM.OBPNVD ---
OB - PN: Subj Subjective Date/time seen: 12/16/23 12:46 Narrative: Pain OK. Desires circumcision for son. Would like to go home. OB - PN: Obj Data Labs 12/16/23 04:50 Labs: Laboratory Results - last 24 hr 12/16/23 04:50 Hgb 10.5 L Hct 34.9 L OB - PN A/P Plan day: 1 Comments: A: PPD#1, doing well. P: Reviewed circ. Home to f/u 6 weeks. Time Spent With Patient Time with patient: less than 15 minutes Exam Psych: Other: AVSS ABD soft, nontender, fundus firm EXT nontender
--- NOTE | 2023-12-16 12:47 | PM.OBDSVD ---
DS: Admitting Diagnosis Discharge Date 12/16/23 Admitting Diagnosis IUP at 39 2/7 weeks DS: Discharge Diagnosis Discharge Diagnosis (1) (normal spontaneous vaginal delivery): Code(s): O80 - Encounter for full-term uncomplicated delivery Status: Acute OB - DS: Summary OB Procedures : None OB Procedures Intrapartum: Spontaneous Vag Delivery OB Procedures: : None Peripartum Data Laceration Description: Periurethral and Perineal - 2nd Degree Episiotomy description: None Time Spent with Patient Time attestation: Total time spent providing and/or coordinating discharge services: DS: Data Data Completed and Pending Labs on day of discharge: Labs from last 24 hours 12/16/23 04:50 Hgb 10.5 L Hct 34.9 L Discharge Plan Discharge Attending physician on discharge: Tom Odonnell Discharging Clinician: Tom Odonnell Patient Disposition: Home, Self-Care Activity: pelvic rest Diet: regular Discharge Instructions: Call or return if temperature above 100.4? F, increased abdominal pain, increased vaginal bleeding or any new problems. Stand Alone Forms: General Discharge Information Follow-up/Referrals: Tom Odonnell MD [Physician] - 6 Weeks Discharge Medications: New ibuprofen 600 mg tablet 600 mg PO Q6H PRN (Reason: cramps) Qty: 30 0RF Continued metoprolol succinate 50 mg tablet extended release 24 hr 50 mg PO DAILY fluoxetine 10 mg capsule 20 mg PO HS albuterol sulfate 90 mcg/actuation HFA aerosol inhaler 2 puff INHALATION Q4H PRN (Reason: Shortness Of Breath) PNV cmb#95-ferrous fumarate-FA [] 28 mg iron- 800 mcg Tablet 1 tablet PO HS Date of admission: 12/15/23 04:41 Primary Care Provider: PHYSICIAN NOT ON STAFF,NONSTAFF Admitting Provider: Tom Odonnell Attending physician on admission: Tom Odonnell Condition: Stable
--- NOTE | 2023-12-16 13:04 | WPDANLDPN2 ---
Anes-Prog Note L&D Date/Time: 12/16/23 13:04 Comfortable throughout: labor and delivery Neuraxial method: epidural Epidural/Spinal procedure site: tender Neuro status: Neuro function grossly intact. Cardiovascular status: normal Respiratory status: normal Airway patency: baseline Mental status: baseline Post-Op hydration status: normal Vital Signs: Last Vital Signs Temp 36.6 C 12/16/23 07:30 Pulse 60 12/16/23 09:29 Resp 18 12/16/23 07:30 BP 109/56 L 12/16/23 07:30 Pulse Ox 100 12/16/23 07:30 O2 Del Method Room Air 12/16/23 09:27 Pain score (VAS): 2/10 Post-procedural complaints: none Patient feedback: Patient satisfied with anesthetic care.
--- NOTE | 2023-12-16 17:05 | PC.NURSE ---
Per Dr. Wahl, infant has lost too much weight for his hours old and she would like someone to see a . Upon entering the patient room, mom states that was just latched but now he is sleeping. Encouraged her that we would like to see a latch/feed and mother states she knows he is latching good because she breastfed her first child. She said the latch isn't the problem, it's that baby is sleepy. He was circumcised, and grandma had requested more Tylenol because he was fussy. Encouraged mom to call for help with waking baby up, latching, or any feeding questions. She is aware that an RN needs to see a feeding. Reported back to the primary RN.
[2023-12-16 19:40] VITALS: BP 108/64; PULSE 82; RESP 20; TEMP 36.6; O2SAT 100
[2023-12-16] MEDS: FLUoxetine HCL 10 MG CAPSULE 20 MG PO (20:50)
[2023-12-17] MEDS: ACETAMINOPHEN 325 MG TABLET 650 MG PO ×2 (02:10→08:01)
[2023-12-17] MEDS: IBUPROFEN 600 MG TABLET PO (04:10)
[2023-12-17 07:55] VITALS: BP 99/66; PULSE 65; RESP 16; TEMP 36.9; O2SAT 98
[2023-12-17] MEDS: MULTIVIT/MIN/PREN/FOL AC/IRON TABLET 1 TAB PO (08:01)
[2023-12-17] MEDS: DOCUSATE SODIUM 100 MG CAPSULE PO (08:01)
[2023-12-17 08:02] VITALS: PULSE 65
[2023-12-17] MEDS: METOPROLOL SUCCINATE EXT REL 50 MG TABCR PO (08:02)
--- NOTE | 2023-12-17 08:59 | PM.OBPNVD ---
OB - PN: Subj Subjective Date/time seen: 12/17/23 08:59 Narrative: Pain OK. Would like to go home. OB - PN: Obj Data Labs 12/16/23 04:50 OB - PN A/P Plan Comments: A: PPD#2, doing well. P: Home to f/u 6 weeks. Exam Psych: Other: AVSS ABD soft, nontender, fundus firm EXT nontender
--- NOTE | 2023-12-17 09:50 | PC.NURSE ---
Consulted with mother concerning needs and she shared her ability to independently latch infant optimally without pain. Mother is feeding appropriately for growth of infant and understands stimulating to eat if needed. Infant has had appropriate feedings in the last 24 hours meets the outcomes for weight, output, blood sugar and jaundice at this time. Mom is pumping and supplementing per the doctor's order. Reinforced understanding of milk production, transition of milk, signs of adequate intake, transition of stool, prevention/relief of engorgement, plugged ducts, mastitis, responsive watching for feeding cues, the different methods of stimulating to breastfeed 1-3 hours after the start of the last feeding, community resources, and when to call a provider using the resource of the feeding sheet along with the mom and baby guide and the Advice for Common Issues handout. She has a Mom Cozy pump at home and she wasn't signed up for [facility], so she signed a release form and her information was faxed to the [place] office. Mother voiced understanding of the information shared, is confident to continue effectively her infant at home, when to call for assistance, denies any additional assistance or education at this time. Reported to the Primary RN.
--- NOTE | 2023-12-17 10:31 | PC.NURSE ---
Patient instructed on viewing the discharge video Mother & Baby Care, The First Two Weeks . Patient was given the opportunity and encouraged to ask questions. Patient verbalized understanding of information shared and has been given the mother/baby guide for home reference.
[2023-12-18 13:06] VITALS: BP 109/67; PULSE 87; RESP 18; TEMP 37.1; O2SAT 98
== END 2023-12-17 11:45 | disposition home or self-care (01) | DRG 560 ==
LOC: ANHLDR 04:45 → ANHOB2 13:26
PROVIDERS: Admitting Provider Obstetrics & Gynecology; Visit Provider Obstetrics & Gynecology
DX: O70.1 Second degree perineal laceration during delivery (principal); Z37.0 Single live birth; Z3A.39 39 weeks gestation of pregnancy; O71.82 Other specified trauma to perineum and vulva
CPT/HCPCS: 36415; 85014; 85018; 85025; 86592; 86703; 86850; 86900; 86901; A9270; G0432; J2405; J2590; J2795; J7120

== ENCOUNTER 2023-12-22 13:09 | Outpatient (RCR) | payer OTHER, SELFPAY ==
--- NOTE | 2023-12-22 13:30 | PC.NURSE ---
In- 1310 Out- 1405 Reason for visit: Huber will not latch to the breast after being supplemented with a bottle. History: Infant had some weight loss while in the hospital and the doctor ordered supplementation. After they started supplementing with a bottle, Kylie wasn't able to get baby to latch to the breast, even though he had been well initially. Mom breastfed her other baby for 18 months. She tried the nipple shield with Huber at home but didn't feel like she was using it correctly and was still not able to latch baby. Infant History: Baby Huber was term and breastfed well initially. After starting supplementation and being discharged home, he would no longer latch to the breast. He just had his 1 week mobile qa tester appointment and is back above his weight. Observations: Kylie handles baby very well. She is able to position him and attempt to latch, but baby was sleepy and didn't give much effort. She was agreeable to try the nipple shield. She was educated on applying and cleaning the shield. It took several attempts over about 20 minutes before was awake enough to latch. Mom does a great job moving him around and stimulating him to wake. Once he woke, we latched to the shield, using some drops of formula to wet him mouth and entice him to suckle. Mom said this was the best he had fed since before discharge from the hospital. He suckled for about 5 minutes and then released the breast and seemed content. Once mom tried to burp he gave a few feeding cues and we discussed need for continuing supplementation until he is well established back at the breast. Mom has been pumping to maintain her supply. She gets about a half an ounce from each breast at every pump session. This may be a lesser amount than expected at 1 week , and we discussed the Mom Cozy pump that is wearable versus the stronger suction of an electric pump. Educated mom about pumping to emptying to help increase her milk supply. Mom doesn't have a lot of help during the day so the wearable pump is more practical for her and she is advised to pump after as many breastfeedings as she can. Triple feeding (breast, bottle, pumping) isn't sustainable in the [facility] so we discussed ways to make the extra steps work for her, including feeding at both breasts each feeding and pumping when she is able. Encouraged that since is eating 1-2 ounces at each feeding, she should offer him the supplement after , paying attention to signs of satisfaction. If appears to still be hungry, she should offer supplement ad shahid. weight: 7 # 3 Last weight: 7 # 5 (today, 12/21) Plan of Care: Mom will continue to offer the breast first at each feeding, starting the attempt prior to being fussy and crying. She will work to establish infant feedings at the breast with the nipple shield. Mom will pump often to help maintain/increase her milk supply. will be supplemented to satisfaction after until he can complete the entire feeding at the breast. Mom is very dedicated and is encouraged by the success we had today with the nipple shield. Follow up plans: Kylie lives 50 minutes away, so she is encouraged to call if she needs help troubleshooting or has any questions/concerns. She also says she doesn't mind driving back here if she needs to see us for a second appointment, like weaning from the nipple shield once baby is well established back at breast.
== END 2024-03-21 23:59 | disposition home or self-care (01) ==
LOC: ANHOBOP 13:09
PROVIDERS: PCP Pediatrics; Visit Provider Pediatrics
DX: R63.30 Feeding difficulties, unspecified (principal)
CPT/HCPCS: 99202; G0463